=== PATIENT | male | born 1990 | race American Indian/Alaskan Native ===

== ENCOUNTER 2018-11-28 05:29 | Inpatient (IN) | payer OTHER ==
[2018-11-28] MEDS ORDERED: Sodium Chloride 0.9% 1,000 ML IV STA (06:03)
--- NOTE | 2018-11-28 06:18 | ED PDOC ---
HPI: Male Pain Time Seen by Provider: 11/28/18 05:46 Chief Complaint (Nursing): Male Genitourinary Chief Complaint (Provider): left groin pain History Per: Patient History/Exam Limitations: no limitations Onset/Duration Of Symptoms: Days (1 week and a half) Current Symptoms Are (Timing): Still Present Associated Symptoms: denies: Fever, Chills, Back Pain, Urinary Symptoms Additional Complaint(s): Cynthia Marino is a 28 year old male, with no significant past medical history, who presents to the emergency department complaining of a persistent left groin pain ongoing for a week and a half. Patient was seen by Dr. Driver as an outpatient and was told to come to ED if pain continued. Patient states he has a remote history of STDs years ago when he was diagnosed with Chlamydia. He denies any discharge, urinary symptoms, fever, chills, abdominal pain or back pain. No further medical complaints. PMD: Moshe Driver Past Medical History Reviewed: Historical Data, Nursing Documentation, Vital Signs Vital Signs: Last Vital Signs Temp 98.7 F 11/28/18 05:44 Pulse 74 11/28/18 05:44 Resp 16 11/28/18 05:44 BP 134/85 11/28/18 05:44 Pulse Ox 100 11/28/18 05:44 - Medical History PMH: No Chronic Diseases - Surgical History Surgical History: No Surg Hx - Family History Family History: States: Unknown Family Hx - Allergies Allergies/Adverse Reactions: Allergies Allergy/AdvReac Type Severity Reaction Status Date / Time No Known Allergies Allergy Verified 11/28/18 05:47 Review of Systems ROS Statement: Except As Marked, All Systems Reviewed And Found Negative Constitutional: Negative for: Fever, Chills Gastrointestinal: Negative for: Abdominal Pain Genitourinary Male: Positive for: Other (left groin pain). Negative for: Dysuria, Frequency, Incontinence, Penile Discharge Musculoskeletal: Negative for: Back Pain Physical Exam - Reviewed Nursing Documentation Reviewed: Yes Vital Signs Reviewed: Yes - Physical Exam Appears: Positive for: No Acute Distress Head Exam: Positive for: ATRAUMATIC, NORMAL INSPECTION, NORMOCEPHALIC Skin: Positive for: Normal Color, Warm, Dry Eye Exam: Positive for: Normal appearance, EOMI, PERRL Neck: Positive for: Normal, Painless ROM Cardiovascular/Chest: Positive for: Regular Rate, Rhythm. Negative for: Murmur Respiratory: Positive for: Normal Breath Sounds. Negative for: Respiratory Distress Gastrointestinal/Abdominal: Positive for: Normal Exam, Soft. Negative for: Tenderness Male Genital Exam: Positive for: other (tenderness of the left vessels of the scrotum. Intact cremasteric reflex). Negative for: testicular tenderness (R), testicular tenderness (L) Back: Positive for: Normal Inspection. Negative for: L CVA Tenderness, R CVA Tenderness, Vertebral Tenderness Extremity: Positive for: Normal ROM (upper and lower extremities). Negative for: Deformity Neurologic/Psych: Positive for: Alert, Oriented. Negative for: Motor/Sensory Deficits - Laboratory Results Result Diagrams: 11/28/18 06:25 11/28/18 06:25 - ECG O2 Sat by Pulse Oximetry: 100 (RA) Pulse Ox Interpretation: Normal Medical Decision Making Medical Decision Making: Time: 05:46 A/P: 28 y/o male presenting with groin pain. Varicocele, patient to be evaluated by urologist. Initial Plan: --Type and screen --BMP --CBC w/ differentia --PTT --PT --NaCl 1,000 ml IV 250 mls/hr patient to be admitted to Dr. Driver's service. ------- Scribe Attestation: Documented by Carlos Neil, acting as a scribe for Greg Daugherty MD Provider Scribe Attestation: All medical record entries made by the Scribe were at my direction and personally dictated by me. I have reviewed the chart and agree that the record accurately reflects my personal performance of the history, physical exam, medical decision making, and the department course for this patient. I have also personally directed, reviewed, and agree with the discharge instructions and disposition. Disposition - Clinical Impression Clinical Impression: Varicocele - Disposition Disposition Time: 07:00 Condition: FAIR
[2018-11-28 06:50] LABS: BASO % 0.6 % (0.0-2.0); EOS # 0.3 K/uL (0.0-0.7); EOS % 4.8 % (0.0-4.0); HEMOGLOBIN 14.8 g/dL (12.0-18.0); LYMPH # 1.6 K/uL (1.0-4.3); LYMPH % 28.1 % (20.0-40.0); MEAN CELL VOLUME 87.6 fl (80.0-94.0); MEAN CORPUSCULAR HEMOGLOBIN 29.1 pg (27.0-31.0); MEAN CORPUSCULAR HGB CONC 33.2 g/dL (33.0-37.0); MEAN PLATELET VOLUME 9.7 fl (7.2-11.7); MONO # 0.7 K/uL (0.0-0.8); NEUT # 3.1 K/uL (1.8-7.0); NEUT % 54.5 % (50.0-75.0); NRBC % 0.2 % (0.0-0.0); RBC 5.1 Mil/uL (4.40-5.90); RED CELL DISTRIBUTION WIDTH 13.7 % (11.5-14.5); WHITE BLOOD COUNT 5.7 K/uL (4.8-10.8)
[2018-11-28 06:56] LABS: INR 1.1; PROTHROMBIN TIME 12.3 Seconds (9.8-13.1)
[2018-11-28 06:59] LABS: BLOOD UREA NITROGEN 19 mg/dl (9-20); CALCIUM 9.3 mg/dL (8.4-10.2); GFR NON-AFRICAN AMERICAN > 60; PARTIAL THROMBOPLASTIN TIME 31.2 Seconds (25.6-37.1)
[2018-11-28] MEDS ORDERED: Desflurane Inhalation Anesthetic Liq (240 ml) ONE (10:05)
[2018-11-28] MEDS ORDERED: Midazolam 2 MG/2 ML VIAL ONE (10:05)
[2018-11-28] MEDS ORDERED: Rocuronium 10 mg/ml (5 ml) ONE (10:05)
[2018-11-28] MEDS ORDERED: Lidocaine 4% (Laryng-O-Jet) Kit MM ONE (10:05)
[2018-11-28] MEDS ORDERED: Propofol 10 mg/ml Inj (20 ML) ONE (10:05)
[2018-11-28] MEDS ORDERED: Dexamethasone 4 mg/1 ml ONE (10:05)
[2018-11-28] MEDS ORDERED: Succinylcholine 200 mg/10 ml Inj IV ONE (10:05)
[2018-11-28] MEDS ORDERED: Neostigmine 1:1000 (1 mg/ml) Inj ONE ×2 (10:05→11:59)
[2018-11-28] MEDS ORDERED: ePHEDrine 50 mg/ml Inj ONE (10:06)
[2018-11-28] MEDS ORDERED: Lidocaine 2% Inj (20ml) ONE (10:34)
[2018-11-28] MEDS ORDERED: Bupivacaine HCl 0.5% PF (30 ml) Inj ONE (10:34)
[2018-11-28] MEDS ORDERED: Lactated Ringer's 1,000 ML IV ONE ×3 (10:38→14:05)
[2018-11-28] MEDS ORDERED: Lidocaine 2% Inj (20ml) IJ ONE (11:00)
[2018-11-28] MEDS ORDERED: Bupivacaine 0.5% Inj(30mL) IJ ONE (11:00)
[2018-11-28] MEDS: HYDROmorphone 0.5 mg/0.5 ml ISec IVP PRN ×2 (12:55→13:10)
[2018-11-28] MEDS ORDERED: Lactated Ringer's 1,000 ML IV SCH (13:00)
[2018-11-28 14:53] VITALS: O2SAT 97
[2018-11-28 14:54] VITALS: BP 125/77; PULSE 77; RESP 18; TEMP 97.6
--- NOTE | 2018-11-28 17:36 | CON ---
DATE: 11/28/2018 EMERGENCY ROOM CONSULTATION HISTORY OF PRESENT ILLNESS: Mr. Marino is a 28-year-old male who presents to the [facility] Emergency Room this morning at approximately 5:00 a.m. with complaints of left groin pain. He was examined at the bedside by myself and found to have fullness of the left mark scrotum consistent with a grade 3 varicocele palpable in the lying down position without Valsalva. A ? of hernia in the groin was identified at this time. He did have a small hernia that side in the umbilicus. Given the findings of the varicocele (grade 3 and the acute onset of pain), the patient was counseled that he should have a diagnostic laparoscopy to verify no incarceration of hernia and treatment of the varicocele and hernia as identified. The patient had the risks, benefits and alternatives of the procedure discussed including the risk of bleeding, infection, damage to testicular cord structures, pain and failure to resolve the varicocele as well as a chance for hydrocele occurrence postop. The patient understands the risks and consents to a diagnostic laparoscopy and emergency treatment of his left varicocele. Moshe Driver M.D. MTDCassi
--- NOTE | 2018-11-28 21:05 | OP ---
PROCEDURE DATE: 11/28/2018 INDICATIONS: Mr. Marino is a gentleman who presented this morning to the [facility] emergency room with complaints of acute onset of left groin pain. He was found to have a large left varicocele in the supine position. Given the acute onset of this pain in the nature, which he presented, there was concern for hernia with obstruction and taken to the operating room emergently for a diagnostic laparoscopy and treatment of his pain. PREOPERATIVE DIAGNOSIS: Left groin pain. POSTOPERATIVE DIAGNOSIS: Left groin pain , left varicocele , umbilical hernia ,lipoma of the left spermatic cord. PROCEDURE: 1. Diagnostic laparoscopy. 2. Laparoscopic left varicocelectomy. 3. doppler examination of spermatic cord. 4. Laparoscopic excision of lipoma of the cord on the left side. 5. Laparoscopic umbilical hernia repair. ESTIMATED BLOOD LOSS: Minimal. ANESTHESIA: General. SURGEON: Moshe Driver M.D. JAVA XML DEVELOPER: Yahir Mejias M.D. DESCRIPTION OF PROCEDURE: The patient was brought emergently to the operating room from the emergency room, placed in the supine position. General anesthesia was administered. We then prepped and draped the patient in the usual sterile fashion. We called a time-out, verifying the patient's name, procedure, antibiotics, and allergies and proceeded to make a semilunar incision within the umbilical fold down to the level of the fascia. We then passed the Veress needle through the fascia and into the abdomen, verified its location with a two clicks as well as with the water test. We then insufflated the abdomen, achieved a pressure of 15 mmHg and then proceeded to place a 12 trocar through the umbilical incision. A 10-mm camera was then inserted through the trocar site, and the bowel underneath the access site was diligently inspected, no trauma was seen to the bowel. We then placed two 5-mm trocars into the right and left sides of the abdomen at the same level as the umbilicus and introduced through a hook on one side and a [place] grasper on the other. We made a small defect in the peritoneum overlying the left cord and exposed the cord completely. The very large varicose veins were identified, these were from the rest of the structures of the spermatic cord. A Doppler probe was introduced through the umbilical port and the structures were interrogated with the Doppler. No arterial pulsations were identified in the structures, which we identified as veins. The vas deferens was identified separate from the structures and therefore these were veins. We doubly clipped these veins and excised and sent to pathology for analysis, marked as left varicose vein. We then continued to inspect the contents of the cord in the area of the internal inguinal ring and a lipoma of the cord was identified. This was excised using electrocautery, sent to pathology for analysis, marked as lipoma of the left cord. At this point, we dropped our pressure, observed the area for any bleeding, no bleeding was identified. We placed Surgiflo on this area as well as local anesthesia in the area consisting of Marcaine and lidocaine. We then performed an endoscopic closure of the umbilical hernia through which we introduced our port. This was done using a GraNee needle in laparoscopic fashion. A watertight seal was made in the fascia, and at this point, the case was completed. We evacuated the gas from the patient's abdomen using the two 5-mm ports with those ports and closed skin using combination of 4-0 Monocryl and Dermabond. The patient tolerated the procedure very well and was transferred to the recovery room in good, stable condition. The patient will follow up with me in the office for routine postoperative care. Moshe Driver M.D. MTDCassi
== END 2018-11-28 19:26 | disposition home or self-care (01) | DRG 712 ==
LOC: H.ER 05:29 → H.ERHOLD 06:04 → H.MEDSURG1 09:28
PROVIDERS: ADMIT Urology; ATTEND Urology
PROC: 0WQF4ZZ Repair Abdominal Wall, Percutaneous Endoscopic Approach (ICD-10-PCS; 2018-11-28)
PROC: 0WJG4ZZ Inspection of Peritoneal Cavity, Percutaneous Endoscopic Approach (ICD-10-PCS; 2018-11-28)
PROC: 0VBG4ZZ Excision of Left Spermatic Cord, Percutaneous Endoscopic Approach (ICD-10-PCS; principal; 2018-11-28 11:00)
DX: I86.1 Scrotal varices (principal); K42.9 Umbilical hernia without obstruction or gangrene; D17.6 Benign lipomatous neoplasm of spermatic cord